=== PATIENT | male | born 1950 | race Caucasian/White ===

== ENCOUNTER → 2017-04-27 | Outpatient (CLI) | payer OTHER | END | disposition home or self-care (01) | LOC: PCVCCLINIC 11:08 | PROVIDERS: ATTEND Internal Medicine | DX: I25.10 Atherosclerotic heart disease of native coronary artery without angina pectoris (principal); I10 Essential (primary) hypertension; E78.2 Mixed hyperlipidemia; E11.40 Type 2 diabetes mellitus with diabetic neuropathy, unspecified; R07.89 Other chest pain; R53.83 Other fatigue; R06.09 Other forms of dyspnea; E78.1 Pure hyperglyceridemia; Z87.891 Personal history of nicotine dependence; Z79.899 Other long term (current) drug therapy; Z79.82 Long term (current) use of aspirin; Z88.0 Allergy status to penicillin; Z79.4 Long term (current) use of insulin | CPT/HCPCS: 80061; 93005; G0463 ==

== ENCOUNTER → 2017-06-08 | Outpatient (CLI) | payer MEDICARE, OTHER ==
[~2017-06-08] MED LIST: REGADENOSON 0.4 MG/5 ML DISP.SYRIN. IV
== END | disposition home or self-care (01) ==
LOC: PCVCIMAG 12:44
DX: I37.1 Nonrheumatic pulmonary valve insufficiency (principal); I25.10 Atherosclerotic heart disease of native coronary artery without angina pectoris; I10 Essential (primary) hypertension; E11.9 Type 2 diabetes mellitus without complications; E78.5 Hyperlipidemia, unspecified; R06.00 Dyspnea, unspecified; Z95.5 Presence of coronary angioplasty implant and graft
CPT/HCPCS: 93306; J2785

== ENCOUNTER → 2017-12-30 | Outpatient (CLI) | payer MEDICARE, OTHER | END | disposition home or self-care (01) | LOC: PCVCCLINIC 11:28 | DX: I25.10 Atherosclerotic heart disease of native coronary artery without angina pectoris (principal); I10 Essential (primary) hypertension; I87.2 Venous insufficiency (chronic) (peripheral); E11.9 Type 2 diabetes mellitus without complications; E78.00 Pure hypercholesterolemia, unspecified; L08.9 Local infection of the skin and subcutaneous tissue, unspecified; T14.8XXA Other injury of unspecified body region, initial encounter; Z79.4 Long term (current) use of insulin; Z79.82 Long term (current) use of aspirin | CPT/HCPCS: 80061; 93005; G0463 ==

== ENCOUNTER → 2018-08-02 | Outpatient (CLI) | payer MEDICARE, OTHER | END | disposition home or self-care (01) | LOC: PCVCCLINIC 12:05 | PROVIDERS: ATTEND Internal Medicine Cardiovascular Disease | DX: I25.10 Atherosclerotic heart disease of native coronary artery without angina pectoris (principal); I10 Essential (primary) hypertension; E78.5 Hyperlipidemia, unspecified; E11.40 Type 2 diabetes mellitus with diabetic neuropathy, unspecified; I87.2 Venous insufficiency (chronic) (peripheral); G47.33 Obstructive sleep apnea (adult) (pediatric); M19.90 Unspecified osteoarthritis, unspecified site; Z99.89 Dependence on other enabling machines and devices; Z79.4 Long term (current) use of insulin; Z79.82 Long term (current) use of aspirin; Z87.891 Personal history of nicotine dependence | CPT/HCPCS: 36415; 80061; 93005; G0463 ==

== ENCOUNTER → 2018-08-11 | Outpatient (CLI) | payer MEDICARE, OTHER ==
[~2018-08-11] MED LIST changes: -REGADENOSON 0.4 MG/5 ML DISP.SYRIN. IV; +REGADENOSON 0.4 MG/5 ML DISP.SYRIN. IV ONE
--- NOTE | 2018-08-11 10:12 | PCVCIMAG ---
APPROVED REPORT Study performed: 08/11/2018 07:24:41 EXAM: Comprehensive 2D, Doppler, and color-flow Echocardiogram Patient Location: Echo lab Status: routine BSA: 2.28 HR: 84 bpmBP: 140/90 mmHg Rhythm: NSR Other Information Study Quality: Adequate Risk Factors: Cardiac Risk Factors: HTN, Hyperlipidemia, Diabetes (insulin) Indications CAD Hypertension/HDD Stent, CAREN 2D Dimensions IVSd: 13.15 (7-11mm)LVOT Diam: 19.98 (18-24mm) LVDd: 44.88 mm PWd: 16.93 (7-11mm)Ascending Ao: 37.86 (22-36mm) LVDs: 30.09 (25-40mm) Left Atrium: 38.08 (27-40mm) Aortic Root: 34.12 mm LV Single Plane 4CH: 48.70 % LV Single Plane 2CH: 49.44 % Biplane EF: 48.3 % Volumes Left Atrial Volume (Systole) Single Plane 4CH: 60.79 mLSingle Plane 2CH: 63.79 mL LA ESV Index: 29.00 mL/m2 Aortic Valve AoV Peak Tray.: 1.76 m/s AO Peak Gr.: 12.37 mmHg Mitral Valve E/A Ratio: 0.8 MV Decel. Time: 175.79 ms MV E Max Tray.: 0.79 m/s MV A Tray.: 0.95 m/s IVRT: 121.11 ms TDI E/Lateral E': 13.17E/Medial E': 13.17 Medial E' Tray.: 0.06 m/s Lateral E' Tray.: 0.06 m/s Pulmonary Valve PV Peak Gr.: 2.10 mmHg Pulmonary Vein P Vein S: 0.54 m/sP Vein A: 0.36 m/s P Vein D: 0.44 m/sP Vein A Dur.: 76.1 msec P Vein S/D Ratio: 1.23 Left Ventricle The left ventricle is normal size. There is normal LV segmental wall motion. Mild concentric left ventricular hypertrophy. Left ventricular systolic function is normal. The left ventricular ejection fraction is within the normal range. LVEF is 55%. The left ventricular diastolic function is normal. Right Ventricle The right ventricle is normal size. The right ventricular systolic function is normal. Atria The left atrium size is normal. The right atrium size is normal. Aortic Valve The aortic valve is normal in structure. No aortic regurgitation is present. There is no aortic valvular stenosis. Mitral Valve The mitral valve is normal in structure. Trace mitral regurgitation. No evidence of mitral valve stenosis. Tricuspid Valve The tricuspid valve is normal in structure. There is no tricuspid valve regurgitation noted. Pulmonic Valve The pulmonary valve is normal in structure. There is no pulmonic valvular regurgitation. Great Vessels The aortic root is normal in size. IVC is normal in size and collapses >50% with inspiration. Pericardium There is no pericardial effusion. <Conclusion> The left ventricle is normal size. LVEF is 55%. Mild concentric left ventricular hypertrophy. The right ventricle is normal size. The left atrium size is normal. The aortic valve is normal in structure. Trace mitral regurgitation. There is no tricuspid valve regurgitation noted. The aortic root is normal in size. There is no pericardial effusion.
--- NOTE | 2018-08-11 17:17 | PCVCIMAG ---
APPROVED REPORT Imaging Protocol: Rest Tc-99m/Stress Tc-99m 1 day Study performed: 08/11/2018 08:38:10 Indication: CAD Patient Location: Out-Patient Stress Nurse: Palmira Morgan RN, Queta Velazquez RN MD Tech:Bruna Costelloalek [facility] Ht: 5 ft 11 in Wt: 240 lbs BSA: 2.28 m2 HR: 88 bpm BP: 166/86 mmHg BMI: 33.4 Rhythm: Normal Sinus Rhythm Medical History Medical History: HTN, Diabetic Insulin, PVD, Former Smoker Medications: Norvasc, ASa, Diazepam, Xopenex, Bystolic, Crestor, Ramipril Allergies: PCN, Shell fish Cardiac Risk Factors: Age Previous Cardiac Procedures: 2008 PCI Pretest Chest Pain Characteristics: No chest pain Exercise History: Sedentary Physical Disabilities: Back Meds Held (24 hrs): Bystolic Resting Data Rest SPECT myocardial perfusion imaging was performed in supine position 45 minutes following the intravenous injection of 10.3 mCi of Tc-99m Sestamibi. Time of rest injection: 819 Administration Route: IV Administration Site: Right Hand Pharmacologic Stress Pharmacologic stress test was performed by injecting Regadenoson 0.4 mg IV push over 10-15 seconds immediately followed by the intravenous injection of 35.3 mCi of Tc-99m Sestamibi. Time of stress injection: 929 Date: 08/11/2018 Administration Route: IV Administration Site: Right Hand Gated Stress SPECT was performed 45 minutes after stress injection. The images were gated to evaluate regional wall motion and calculate left ventricular ejection fraction. Stress Test Details Stress Test: Pharmacologic stress testing performed using 0.4 mg of regadenoson per 5 mL given IV over 10 seconds. Reason for pharmacologic stress test: spinal stenosis. HRMax Heart Rate (APMHR): 153 bpm Resting HR: 88 bpmTarget HR (85% APMHR): 130 bpm Max HR Achieved: 108 bpm % of APMHR: 70 Recovery HR: 104 bpm BP Resting BP: 166/86 mmHg Max BP: 183/92 mmHg Recovery BP: 156/75 mmHg ECG Resting ECG: Normal Sinus Rhythm Stress ECG: Sinus Tachycardia Arrhythmia: APC's Recovery ECG: Sinus Tachycardia Clinical Reason for Termination: Completed protocol Stress Symptoms: Nausea, Lightheaded Exercise duration: 0 min 55 sec Symptoms resolved with caffeine. Stress ECG Conclusion ECG: Non-ischemic Study Quality Study: Good Study Data Post stress, the left ventricular ejection was 62%.. SSS: 3 SRS: 0 SDS: 3 TID = 1.08. Perfusion No evidence of stress induced ischemia or prior myocardial infarction. Wall Motion Normal left ventricular size and function with no regional wall motion abnormalities. Nuclear Conclusion No evidence of stress induced ischemia or prior myocardial infarction. Normal left ventricular size and function with no regional wall motion abnormalities. Post stress, the left ventricular ejection was 62%. No change since prior study dated March 2015. Interpreted by: Jonas Zaragoza MD Electronically Approved: 08/11/2018 16:03:36 <Conclusion> ECG: Non-ischemic
== END | disposition home or self-care (01) ==
LOC: PCVCIMAG 07:29
PROVIDERS: ATTEND Internal Medicine Cardiovascular Disease
DX: I25.10 Atherosclerotic heart disease of native coronary artery without angina pectoris (principal); G47.33 Obstructive sleep apnea (adult) (pediatric); I11.9 Hypertensive heart disease without heart failure; E11.40 Type 2 diabetes mellitus with diabetic neuropathy, unspecified; E78.2 Mixed hyperlipidemia; Z79.4 Long term (current) use of insulin; Z87.891 Personal history of nicotine dependence
CPT/HCPCS: 78452; 93017; 93306; A9500; J2785

== ENCOUNTER → 2019-04-04 | Outpatient (CLI) | payer MEDICARE, OTHER | END | disposition home or self-care (01) | LOC: PCVCCLINIC 15:35 | PROVIDERS: ATTEND Internal Medicine Cardiovascular Disease | DX: I25.10 Atherosclerotic heart disease of native coronary artery without angina pectoris (principal); I10 Essential (primary) hypertension; R94.31 Abnormal electrocardiogram [ECG] [EKG]; E78.00 Pure hypercholesterolemia, unspecified; E78.5 Hyperlipidemia, unspecified; E11.42 Type 2 diabetes mellitus with diabetic polyneuropathy; G47.33 Obstructive sleep apnea (adult) (pediatric); Z88.0 Allergy status to penicillin; Z88.8 Allergy status to other drugs, medicaments and biological substances; Z79.82 Long term (current) use of aspirin; Z79.899 Other long term (current) drug therapy; Z87.891 Personal history of nicotine dependence; Z79.4 Long term (current) use of insulin; Z99.89 Dependence on other enabling machines and devices; Z72.89 Other problems related to lifestyle | CPT/HCPCS: 36415; 80061; 93005; G0463 ==